=== PATIENT | female | born 1965 ===

== ENCOUNTER 2022-05-09 11:56 | Emergency (ER) | payer SELFPAY ==
[2022-05-09 12:19] VITALS: BP 146/69
--- NOTE | 2022-05-09 16:49 | Emergency Department Report ---
ED Extremity Problem HPI - General Chief complaint: Extremity Problem,Nontraumatic Stated complaint: BACK AND LEG PAIN/CHRONIC Time Seen by Provider: 05/09/22 16:43 Source: patient, EMS Mode of arrival: Wheelchair Limitations: No Limitations - History of Present Illness Initial comments: 57-year-old black female presents to the emergency department for evaluation of bilateral leg and back pain. She states that she is homeless and has to walk around a lot and that her pain is secondary to being homeless. She states that she was advised to come here to get a bus ticket to get back home to [place]. She denies any other complaints of at this time. MD Complaint: extremity pain -: Gradual, days(s) Location: bilateral lower extremity History of Same: Yes -: No myalgia, No arthralgia, No fever, No associated dyspnea, No associated chest pain Severity scale (0 -10): 5 Quality: aching Consistency: constant Worsens with: walking Associated Symptoms: denies other symptoms - Related Data Allergies Allergy/AdvReac Type Severity Reaction Status Date / Time banana Allergy Unknown Verified 05/09/22 12:16 ED Review of Systems ROS: Stated complaint: BACK AND LEG PAIN/CHRONIC Other details as noted in HPI Comment: All other systems reviewed and negative Constitutional: denies: chills, fever Respiratory: denies: shortness of breath Cardiovascular: denies: chest pain, palpitations Gastrointestinal: denies: abdominal pain, nausea, vomiting Musculoskeletal: back pain Neurological: denies: headache, weakness ED Physical Exam - General Limitations: No Limitations General appearance: alert, in no apparent distress - Head Head exam: Present: atraumatic, normocephalic - Eye Eye exam: Present: normal appearance. Absent: conjunctival injection - Neck Neck exam: Present: normal inspection - Respiratory Respiratory exam: Absent: respiratory distress - Cardiovascular Cardiovascular Exam: Present: regular rate - GI/Abdominal GI/Abdominal exam: Absent: distended - Extremities Exam Extremities exam: Present: normal inspection, full ROM, normal capillary refill. Absent: tenderness, pedal edema, joint swelling, calf tenderness - Back Exam Back exam: Present: normal inspection, tenderness (Bilateral lower). Absent: CVA tenderness (R), CVA tenderness (L), vertebral tenderness - Neurological Exam Neurological exam: Present: alert, oriented X3 - Psychiatric Psychiatric exam: Present: normal affect, normal mood - Skin Skin exam: Present: warm, dry, intact, normal color ED Course Vital Signs 05/09/22 11:56 Temperature 98.0 F Pulse Rate 86 Respiratory 16 Rate Blood Pressure 146/69 [Left] O2 Sat by Pulse 97 Oximetry ED Medical Decision Making - Medical Decision Making 57-year-old black female presents to the emergency department for evaluation of bilateral leg and back pain. She states that she is homeless and has to walk around a lot and that her pain is secondary to being homeless. She states that she was advised to come here to get a bus ticket to get back home to [facility]. She denies any other complaints of at this time. Physical exam unremarkable. Provider did speak with social service director who stated that we cannot provide patient a bus ticket to get in [place]. Patient was given information on local homeless shelters. She is advised to return to the emergency department as needed. Critical care attestation.: If time is entered above; I have spent that time in minutes in the direct care of this critically ill patient, excluding procedure time. ED Disposition Clinical Impression: Leg pain, bilateral, Homeless Back pain Qualifiers: Back pain location: low back pain Chronicity: chronic Back pain laterality: bilateral Sciatica presence: without sciatica Qualified Code(s): M54.50 - Low back pain, unspecified Disposition: 01 HOME / SELF CARE / HOMELESS Is pt being admited?: No Does the pt Need Aspirin: No Condition: Stable Instructions: Chronic Knee Pain, Adult, [id number], Chronic Back Pain, [id number] Additional Instructions: Follow-up with your primary care provider. Use resources provided to you about homeless shelters. Return to the emergency department as needed. Referrals: TOMMY WORRELL MD [Primary Care Provider] - 3-5 Days [facility] [Outside] - 3-5 Days Time of Disposition: 16:48
== END 2022-05-09 17:30 | disposition home or self-care (01) ==
LOC: ED 11:56
DX: M79.604 Pain in right leg (principal); M79.605 Pain in left leg; M54.50 Low back pain, unspecified; Z59.00 Homelessness unspecified; Z91.018 Allergy to other foods; Z79.899 Other long term (current) drug therapy
CPT/HCPCS: 99283